=== PATIENT | male | born 1970 | race Caucasian/White ===

== ENCOUNTER 2022-11-24 11:55 | Day surgery (SDC) | payer BC ==
[~2022-11-24 11:55] MED LIST: Midazolam 1 MG/ML 2 ML SDV ONE; Propofol 200 MG/20 ML SDV ONE
[2022-11-24] MEDS ORDERED: Sodium Chloride 0.9% 10 ML Syringe FLUSH PRN (12:30)
[2022-11-24] MEDS: Lactated Ringers 1,000 ML IV SCH (12:40)
== END 2022-11-24 15:00 | disposition home or self-care (01) ==
LOC: LL.SDS 11:55
PROVIDERS: ATTEND Surgery
DX: Z12.11 Encounter for screening for malignant neoplasm of colon (principal); D12.5 Benign neoplasm of sigmoid colon; Z79.899 Other long term (current) drug therapy
CPT/HCPCS: 45385; J2250; J2704; J7120